=== PATIENT | male | born 1975 | race Caucasian/White ===

== ENCOUNTER 2020-02-07 10:20 | Inpatient (IN) | payer OTHER ==
[~2020-02-07] VITALS: Ht 182.9 cm; Wt 73.9 kg
--- NOTE | 2020-02-07 10:44 | NUR ---
ASSUMED CARE OF PT AT THIS TIME FROM TRIAGE. PT AMBULATORY TO ROOM WITH STEADY GAIT. 44 Y/O M PRESENTS STATING "THROWING UP FOR PAST 13 DAYS, STARTED BY GETTING REALLY NAUSEATED, TRYING TO SIP ON SOUP BROTH AND WATER AND REALLY HARD TIME KEEPING IT DOWN, PAIN IN MY RIGHT STOMACH. I WALK AROUND A LOT FOR MY JOB. I WAS SEEN AT [facility] A WEEK AGO, GAVE ME NAUSEA MEDICINE, TOLD ME TO GET INTO TO PCP TO GET CAT SCAN, I GET INTO A PCP RIGHT NOW." CONT PULSE OX, BP MONITORS APPLIED. VSS. REPORTS PAIN 5/10 IN ABD "CRAMPING AND NAUSEA." "I HAVEN'T THROW UP TODAY, SINCE I'VE BEEN IN BED FOR 24 HOURS, KEPT SOME WATER AND CHEERIOS DOWN THIS MORNING." CALL LIGHT IN REACH. FALL PRECAUTIONS IN PLACE. SIDE RAILS UPX2. A&OX4. AWAITING EVAL BY ERP. CLEAN CATCH UA COLLECTED AND SENT TO LAB. DENIES FEVER, CHILLS, DIARRHEA, DIAZ, COUGH, SOB, CP.
[2020-02-07] MEDS ORDERED: ONDA4TAB7 PO (11:02)
--- NOTE | 2020-02-07 11:10 | NUR ---
DR. SAXENA AT BEDSIDE FOR EVAL
[2020-02-07] MEDS ORDERED: SODIUM CHLORIDE 0.9% 1,000 ML IV ONE (11:12)
[2020-02-07 11:25] LABS: MICROSCOPIC NOT IND
[2020-02-07] MEDS ORDERED: SODIUM CHLORIDE FLUSH 10ML SYR IVF ONE (11:30)
--- NOTE | 2020-02-07 11:32 | NUR ---
IVF INFUSING PER EMAR AND MD ORDER. PT DENIES NEED FOR PAIN/NAUSEA MEDICATION AT THIS TIME. "I'M NOT NAUSEATED CURRENTLY AND THE PAIN IS TOLERABLE." VSS. CALL LIGHT IN REACH. FALL PRECAUTIONS IN PLACE. AWAITING CT
[2020-02-07 12:03] LABS: CULTURE INDICATED? NO
[2020-02-07 12:06] LABS: BASOPHILS # (AUTO) 0.04 x10^3/uL (0-0.1); BASOPHILS % (AUTO) 1 % (0-1); EOSINOPHILS # (AUTO) 0.05 x10^3/uL (0-0.4); EOSINOPHILS % (AUTO) 1 % (1-7); LYMPHOCYTES # (AUTO) 1.63 x10^3/uL (1-3.4); LYMPHOCYTES % (AUTO) 24 % (22-44); MD NO; MEAN CORPUSCULAR HEMOGLOBIN 30.6 pg (27.5-34.5); MEAN CORPUSCULAR HGB CONC 33.8 g/dL (33.2-36.2); MEAN CORPUSCULAR VOLUME 90.4 fL (81-97); MEAN PLATELET VOLUME 9.1 fL (7.4-10.4); MONOCYTES # (AUTO) 0.87 x10^3/uL (0.2-0.8); MONOCYTES % (AUTO) 13 % (2-9); NEUTROPHILS # (AUTO) 4.12 x10^3/uL (1.8-6.8); NEUTROPHILS % (AUTO) 61 % (42-75); PLATELET COUNT 175 x10^3/uL (130-400); RED CELL DISTRIBUTION WIDTH 12.7 % (9.4-14.8)
[2020-02-07 12:17] LABS: ALANINE AMINOTRANSFERASE 19 U/L (12-78); ALBUMIN 3.9 g/dL (3.4-5.0); ANION GAP 7 mmol/L (5-15); CALCIUM 9.6 mg/dL (8.5-10.1); CHLORIDE 108 mmol/L (98-107); CREATININE 1.11 mg/dL (0.7-1.3)
[2020-02-07 12:19] LABS: ALKALINE PHOSPHATASE 54 U/L (45-117); BILIRUBIN,TOTAL 0.9 mg/dL (0.2-1.0); TOTAL PROTEIN 6.7 g/dL (6.4-8.2)
--- NOTE | 2020-02-07 12:39 | NUR ---
PT CONTINUES AWAITING CT, CT CALLED, TO COME TAKE PT. PT REQUESTING "SOMETHING FOR MY PAIN, IT'S GETTING WORSE, LIKE 810 NOW, AND A NAUSEA SEEMS TO BE GETTING WORSE." DISCUSSED WITH DR. SAXENA, AWAITING ORDERS. VSS. CALL LIGHT IN REACH. FALL PRECAUTIONS IN PLACE. DENIES NEED TO USE RESTROOM.
--- NOTE | 2020-02-07 12:49 | NUR ---
BEDSIDE REPORT AND TRANSFER OF CARE TO JASEN CONNORS AT THIS TIME.
[2020-02-07] MEDS ORDERED: MAALOX/HYOSCYAMINE/LIDOCAINE 45 ML BTL PO ONE (13:00)
[2020-02-07] MEDS ORDERED: ONDANSETRON 2MG/ML, 2ML IVPush ONE (13:00)
[2020-02-07] MEDS ORDERED: MORPHINE SULFATE 4 MG/ML, 1ML ONE (13:30)
[2020-02-07] MEDS ORDERED: MAALOX/HYOSCYAMINE/LIDOCAINE 45 ML BTL ONE (13:30)
[2020-02-07] MEDS ORDERED: ONDANSETRON 2MG/ML, 2ML ONE (13:30)
[2020-02-07] MEDS ORDERED: MORPHINE SULFATE 4 MG/ML, 1ML IVPush ONE (13:30)
--- NOTE | 2020-02-07 14:24 | NUR ---
Pt resting on joseph talking to ED MD at bedside. NADN. No needs expressed at this time. Call light within reach.
[2020-02-07] MEDS ORDERED: LACTATED RINGERS 1,000 ML IV SCH (14:30)
--- NOTE | 2020-02-07 15:35 | NUR ---
Pt has NG tube in place at low continous suction per EDMD order. Pt has PIV fluids infusing per EMAR. Pt connected to NIBP cuff and continous pulse ox monitor. Call light within reach. NADN. Pt denies needs at this time. Pt on personal cell phone at this time.
--- NOTE | 2020-02-07 15:49 | NUR ---
Provided SBAR report to WAYLON Odom. All questions answered. Pt ready to transfer from ED to floor.
--- NOTE | 2020-02-07 16:13 | NUR ---
Pt transfered from ED to floor.
[2020-02-07] MEDS ORDERED: METOCLOPRAMIDE 5 MG/ML, 2ML IVPush PRN (16:30)
[2020-02-07] MEDS ORDERED: PROMETHAZINE 25 MG/ML, 1ML IM PRN (16:30)
[2020-02-07] MEDS: AZITHROMYCIN 500 MG in SODIUM CHLORIDE 0.9% 250 ML IV SCH (17:09)
[2020-02-07] MEDS: ONDANSETRON 2MG/ML, 2ML IVPush PRN (17:14)
[2020-02-07] MEDS: morphine SULFATE 10 MG/ML, 1ML IVPush PRN ×2 (17:14→20:55)
[2020-02-07] MEDS: D5%-0.45NACL+KCL 20MEQ 1,000 ML IV SCH (18:08)
[2020-02-07 19:12] VITALS: BP 121/79
[2020-02-07] MEDS: ENOXAPARIN 40 MG/0.4 ML SQ SCH (20:56)
[2020-02-08] MEDS ORDERED: MORPHINE SULFATE 4 MG/ML, 1ML ONE ×2 (02:08→05:14)
[2020-02-08 02:12] VITALS: BP 119/81
[2020-02-08] MEDS: morphine SULFATE 10 MG/ML, 1ML IVPush PRN ×8 (02:15→23:56)
[2020-02-08] MEDS: ONDANSETRON 2MG/ML, 2ML IVPush PRN ×4 (02:15→20:50)
[2020-02-08] MEDS: D5%-0.45NACL+KCL 20MEQ 1,000 ML IV SCH ×3 (02:16→23:56)
[2020-02-08 05:04] LABS: BASOPHILS # (AUTO) 0.03 x10^3/uL (0-0.1); BASOPHILS % (AUTO) 1 % (0-1); EOSINOPHILS # (AUTO) 0.06 x10^3/uL (0-0.4); EOSINOPHILS % (AUTO) 1 % (1-7); LYMPHOCYTES # (AUTO) 1.93 x10^3/uL (1-3.4); LYMPHOCYTES % (AUTO) 27 % (22-44); MD NO; MEAN CORPUSCULAR HGB CONC 32.8 g/dL (33.2-36.2); MEAN CORPUSCULAR VOLUME 91.5 fL (81-97); MEAN PLATELET VOLUME 9.2 fL (7.4-10.4); MONOCYTES # (AUTO) 0.77 x10^3/uL (0.2-0.8); MONOCYTES % (AUTO) 11 % (2-9); NEUTROPHILS # (AUTO) 4.29 x10^3/uL (1.8-6.8); NEUTROPHILS % (AUTO) 61 % (42-75); PLATELET COUNT 172 x10^3/uL (130-400); RED BLOOD COUNT 5.74 x10^6/uL (4.38-5.82); RED CELL DISTRIBUTION WIDTH 13.3 % (9.4-14.8)
[2020-02-08 05:12] LABS: ALANINE AMINOTRANSFERASE 19 U/L (12-78); ALBUMIN 3.9 g/dL (3.4-5.0); ANION GAP 5 mmol/L (5-15); CALCIUM 8.8 mg/dL (8.5-10.1); CHLORIDE 108 mmol/L (98-107); CREATININE 1.18 mg/dL (0.7-1.3)
[2020-02-08 05:14] LABS: ALKALINE PHOSPHATASE 57 U/L (45-117); BILIRUBIN,TOTAL 1.2 mg/dL (0.2-1.0); TOTAL PROTEIN 6.5 g/dL (6.4-8.2)
[2020-02-08 07:59] VITALS: BP 129/80
[2020-02-08 15:00] VITALS: BP 109/71
[2020-02-08] MEDS: AZITHROMYCIN 500 MG in SODIUM CHLORIDE 0.9% 250 ML IV SCH (16:23)
[2020-02-08 19:06] VITALS: BP 103/69
[2020-02-08] MEDS: ENOXAPARIN 40 MG/0.4 ML SQ SCH (21:09)
[2020-02-09 01:07] VITALS: BP 112/77
[2020-02-09] MEDS: ONDANSETRON 2MG/ML, 2ML IVPush PRN ×3 (03:58→18:17)
[2020-02-09] MEDS: morphine SULFATE 10 MG/ML, 1ML IVPush PRN ×6 (03:58→21:17)
[2020-02-09 05:23] LABS: BASOPHILS # (AUTO) 0.04 x10^3/uL (0-0.1); BASOPHILS % (AUTO) 1 % (0-1); EOSINOPHILS # (AUTO) 0.08 x10^3/uL (0-0.4); EOSINOPHILS % (AUTO) 1 % (1-7); LYMPHOCYTES # (AUTO) 1.67 x10^3/uL (1-3.4); LYMPHOCYTES % (AUTO) 24 % (22-44); MD NO; MEAN CORPUSCULAR HGB CONC 34.2 g/dL (33.2-36.2); MEAN CORPUSCULAR VOLUME 90.7 fL (81-97); MEAN PLATELET VOLUME 8.6 fL (7.4-10.4); MONOCYTES # (AUTO) 0.78 x10^3/uL (0.2-0.8); MONOCYTES % (AUTO) 11 % (2-9); NEUTROPHILS # (AUTO) 4.37 x10^3/uL (1.8-6.8); NEUTROPHILS % (AUTO) 63 % (42-75); PLATELET COUNT 149 x10^3/uL (130-400); RED BLOOD COUNT 5.24 x10^6/uL (4.38-5.82); RED CELL DISTRIBUTION WIDTH 12.9 % (9.4-14.8)
[2020-02-09 05:29] LABS: ALBUMIN 3.7 g/dL (3.4-5.0); ANION GAP 5 mmol/L (5-15); CALCIUM 8.8 mg/dL (8.5-10.1); CHLORIDE 103 mmol/L (98-107)
[2020-02-09 05:32] LABS: CREATININE 1.02 mg/dL (0.7-1.3)
[2020-02-09 07:20] VITALS: BP 125/67
[2020-02-09] MEDS: D5%-0.45NACL+KCL 20MEQ 1,000 ML IV SCH ×2 (08:00→21:18)
[2020-02-09] MEDS ORDERED: CARVEDILOL 25 MG TABLET PO SCH (10:30)
[2020-02-09 13:11] VITALS: BP 124/80
[2020-02-09] MEDS: AZITHROMYCIN 500 MG in SODIUM CHLORIDE 0.9% 250 ML IV SCH (16:53)
[2020-02-09 19:25] VITALS: BP 108/71
[2020-02-09] MEDS: ENOXAPARIN 40 MG/0.4 ML SQ SCH (21:18)
[2020-02-10] MEDS: ONDANSETRON 2MG/ML, 2ML IVPush PRN ×2 (00:19→16:21)
[2020-02-10] MEDS: morphine SULFATE 10 MG/ML, 1ML IVPush PRN ×7 (00:20→23:23)
[2020-02-10 01:33] VITALS: BP_SYST 104; BP_SYST 124; BP_DIAS 68; BP_DIAS 72
[2020-02-10 05:38] LABS: BASOPHILS # (AUTO) 0.03 x10^3/uL (0-0.1); BASOPHILS % (AUTO) 1 % (0-1); EOSINOPHILS # (AUTO) 0.08 x10^3/uL (0-0.4); EOSINOPHILS % (AUTO) 1 % (1-7); LYMPHOCYTES # (AUTO) 1.36 x10^3/uL (1-3.4); LYMPHOCYTES % (AUTO) 22 % (22-44); MD NO; MEAN CORPUSCULAR HEMOGLOBIN 30.8 pg (27.5-34.5); MEAN CORPUSCULAR HGB CONC 33.8 g/dL (33.2-36.2); MEAN CORPUSCULAR VOLUME 91.1 fL (81-97); MEAN PLATELET VOLUME 8.7 fL (7.4-10.4); MONOCYTES # (AUTO) 0.69 x10^3/uL (0.2-0.8); MONOCYTES % (AUTO) 11 % (2-9); NEUTROPHILS # (AUTO) 4.11 x10^3/uL (1.8-6.8); NEUTROPHILS % (AUTO) 66 % (42-75); PLATELET COUNT 164 x10^3/uL (130-400); RED BLOOD COUNT 5.45 x10^6/uL (4.38-5.82); RED CELL DISTRIBUTION WIDTH 12.7 % (9.4-14.8)
[2020-02-10 05:47] LABS: ALANINE AMINOTRANSFERASE 13 U/L (12-78); ALBUMIN 3.7 g/dL (3.4-5.0); ANION GAP 4 mmol/L (5-15); CHLORIDE 104 mmol/L (98-107)
[2020-02-10 05:50] LABS: ALKALINE PHOSPHATASE 59 U/L (45-117); BILIRUBIN,TOTAL 1.3 mg/dL (0.2-1.0); CREATININE 1.05 mg/dL (0.7-1.3); TOTAL PROTEIN 6.4 g/dL (6.4-8.2)
[2020-02-10] MEDS: D5%-0.45NACL+KCL 20MEQ 1,000 ML IV SCH ×3 (05:50→23:23)
[2020-02-10 07:06] VITALS: BP 108/73
[2020-02-10 13:55] VITALS: BP 107/74
[2020-02-10 20:14] VITALS: BP 95/60
[2020-02-10] MEDS: ENOXAPARIN 40 MG/0.4 ML SQ SCH (21:14)
[2020-02-11 02:09] VITALS: BP 93/57
[2020-02-11] MEDS: morphine SULFATE 10 MG/ML, 1ML IVPush PRN ×5 (02:43→22:49)
[2020-02-11 05:12] LABS: BASOPHILS # (AUTO) 0.03 x10^3/uL (0-0.1); BASOPHILS % (AUTO) 0 % (0-1); EOSINOPHILS # (AUTO) 0.22 x10^3/uL (0-0.4); EOSINOPHILS % (AUTO) 3 % (1-7); LYMPHOCYTES # (AUTO) 1.65 x10^3/uL (1-3.4); LYMPHOCYTES % (AUTO) 23 % (22-44); MD NO; MEAN CORPUSCULAR HEMOGLOBIN 30.2 pg (27.5-34.5); MEAN CORPUSCULAR VOLUME 91.5 fL (81-97); MEAN PLATELET VOLUME 8.8 fL (7.4-10.4); MONOCYTES # (AUTO) 0.79 x10^3/uL (0.2-0.8); MONOCYTES % (AUTO) 11 % (2-9); NEUTROPHILS # (AUTO) 4.58 x10^3/uL (1.8-6.8); NEUTROPHILS % (AUTO) 63 % (42-75); PLATELET COUNT 171 x10^3/uL (130-400); RED BLOOD COUNT 5.83 x10^6/uL (4.38-5.82); RED CELL DISTRIBUTION WIDTH 12.8 % (9.4-14.8)
[2020-02-11 05:22] LABS: ALBUMIN 3.8 g/dL (3.4-5.0); ANION GAP 6 mmol/L (5-15); CALCIUM 9.1 mg/dL (8.5-10.1); CHLORIDE 104 mmol/L (98-107)
[2020-02-11 05:24] LABS: CREATININE 1.21 mg/dL (0.7-1.3)
[2020-02-11 07:25] VITALS: BP 117/70
[2020-02-11] MEDS: D5%-0.45NACL+KCL 20MEQ 1,000 ML IV SCH ×3 (08:04→23:12)
[2020-02-11 13:25] VITALS: BP 108/69
[2020-02-11 21:22] VITALS: BP 120/79
[2020-02-11] MEDS: ENOXAPARIN 40 MG/0.4 ML SQ SCH (21:27)
[2020-02-12 03:00] VITALS: BP 132/91
[2020-02-12] MEDS: morphine SULFATE 10 MG/ML, 1ML IVPush PRN ×5 (03:00→20:42)
[2020-02-12 05:39] LABS: BASOPHILS # (AUTO) 0.02 x10^3/uL (0-0.1); BASOPHILS % (AUTO) 0 % (0-1); EOSINOPHILS # (AUTO) 0.19 x10^3/uL (0-0.4); EOSINOPHILS % (AUTO) 3 % (1-7); LYMPHOCYTES # (AUTO) 1.35 x10^3/uL (1-3.4); LYMPHOCYTES % (AUTO) 21 % (22-44); MD NO; MEAN CORPUSCULAR HEMOGLOBIN 30.7 pg (27.5-34.5); MEAN CORPUSCULAR VOLUME 90.1 fL (81-97); MEAN PLATELET VOLUME 9.1 fL (7.4-10.4); MONOCYTES # (AUTO) 0.68 x10^3/uL (0.2-0.8); MONOCYTES % (AUTO) 10 % (2-9); NEUTROPHILS # (AUTO) 4.38 x10^3/uL (1.8-6.8); NEUTROPHILS % (AUTO) 66 % (42-75); PLATELET COUNT 159 x10^3/uL (130-400); RED BLOOD COUNT 5.56 x10^6/uL (4.38-5.82); RED CELL DISTRIBUTION WIDTH 12.6 % (9.4-14.8)
[2020-02-12 05:56] LABS: ALBUMIN 3.5 g/dL (3.4-5.0); ANION GAP 7 mmol/L (5-15); CHLORIDE 106 mmol/L (98-107)
[2020-02-12 06:06] LABS: CALCIUM 9.1 mg/dL (8.5-10.1); CREATININE 0.97 mg/dL (0.7-1.3)
[2020-02-12] MEDS: D5%-0.45NACL+KCL 20MEQ 1,000 ML IV SCH ×2 (06:08→20:21)
[2020-02-12 06:22] VITALS: BP 112/76
[2020-02-12 12:46] VITALS: BP 109/68
[2020-02-12 20:17] VITALS: BP 121/83
[2020-02-12] MEDS: ENOXAPARIN 40 MG/0.4 ML SQ SCH (20:21)
[2020-02-13] MEDS: TRAZODONE 50MG TABLET PO PRN ×2 (01:13→20:53)
[2020-02-13] MEDS: morphine SULFATE 10 MG/ML, 1ML IVPush PRN ×2 (01:14→06:36)
[2020-02-13 03:14] VITALS: BP 102/69
[2020-02-13] MEDS: D5%-0.45NACL+KCL 20MEQ 1,000 ML IV SCH ×3 (05:09→22:53)
[2020-02-13] MEDS: BISACODYL 10 MG SUPP PR PRN (06:36)
[2020-02-13 07:24] VITALS: BP 109/73
[2020-02-13 09:43] LABS: BASOPHILS # (AUTO) 0.03 x10^3/uL (0-0.1); BASOPHILS % (AUTO) 0 % (0-1); EOSINOPHILS % (AUTO) 3 % (1-7); LYMPHOCYTES # (AUTO) 1.19 x10^3/uL (1-3.4); LYMPHOCYTES % (AUTO) 16 % (22-44); MD NO; MEAN CORPUSCULAR HEMOGLOBIN 30.4 pg (27.5-34.5); MEAN CORPUSCULAR HGB CONC 33.1 g/dL (33.2-36.2); MEAN CORPUSCULAR VOLUME 91.8 fL (81-97); MONOCYTES # (AUTO) 0.77 x10^3/uL (0.2-0.8); MONOCYTES % (AUTO) 11 % (2-9); NEUTROPHILS # (AUTO) 5.07 x10^3/uL (1.8-6.8); NEUTROPHILS % (AUTO) 70 % (42-75); PLATELET COUNT 162 x10^3/uL (130-400); RED BLOOD COUNT 5.29 x10^6/uL (4.38-5.82); RED CELL DISTRIBUTION WIDTH 12.6 % (9.4-14.8)
[2020-02-13 09:54] LABS: ALBUMIN 3.4 g/dL (3.4-5.0); ANION GAP 9 mmol/L (5-15); CALCIUM 8.8 mg/dL (8.5-10.1); CHLORIDE 108 mmol/L (98-107)
[2020-02-13 09:58] LABS: ALANINE AMINOTRANSFERASE 29 U/L (12-78); ALKALINE PHOSPHATASE 64 U/L (45-117); BILIRUBIN,TOTAL 1.6 mg/dL (0.2-1.0); CREATININE 0.98 mg/dL (0.7-1.3); TOTAL PROTEIN 6.2 g/dL (6.4-8.2)
[2020-02-13] MEDS ORDERED: MAGNESIUM SULFATE PMX 2GM/50ML 50 ML IV ONE (11:30)
[2020-02-13 13:51] VITALS: BP 136/84
[2020-02-13] MEDS: MORPHINE SULFATE 4 MG/ML, 1ML IVPush PRN ×2 (15:24→20:52)
[2020-02-13] MEDS: ENOXAPARIN 40 MG/0.4 ML SQ SCH (20:53)
[2020-02-13 20:54] VITALS: BP 130/88
[2020-02-14] MEDS: MORPHINE SULFATE 4 MG/ML, 1ML IVPush PRN ×2 (02:08→06:37)
[2020-02-14 02:09] VITALS: BP 123/82
[2020-02-14] MEDS: BISACODYL 10 MG SUPP PR PRN (04:58)
[2020-02-14 05:08] LABS: ALBUMIN 3.3 g/dL (3.4-5.0); ANION GAP 7 mmol/L (5-15); BASOPHILS # (AUTO) 0.03 x10^3/uL (0-0.1); BASOPHILS % (AUTO) 1 % (0-1); CALCIUM 8.7 mg/dL (8.5-10.1); CHLORIDE 110 mmol/L (98-107); EOSINOPHILS # (AUTO) 0.24 x10^3/uL (0-0.4); EOSINOPHILS % (AUTO) 4 % (1-7); LYMPHOCYTES # (AUTO) 1.52 x10^3/uL (1-3.4); LYMPHOCYTES % (AUTO) 23 % (22-44); MD NO; MEAN CORPUSCULAR HEMOGLOBIN 30.6 pg (27.5-34.5); MEAN CORPUSCULAR HGB CONC 33.8 g/dL (33.2-36.2); MEAN CORPUSCULAR VOLUME 90.3 fL (81-97); MEAN PLATELET VOLUME 9.5 fL (7.4-10.4); MONOCYTES # (AUTO) 0.65 x10^3/uL (0.2-0.8); MONOCYTES % (AUTO) 10 % (2-9); NEUTROPHILS # (AUTO) 4.09 x10^3/uL (1.8-6.8); NEUTROPHILS % (AUTO) 63 % (42-75); PLATELET COUNT 173 x10^3/uL (130-400); RED BLOOD COUNT 5.17 x10^6/uL (4.38-5.82); RED CELL DISTRIBUTION WIDTH 12.7 % (9.4-14.8)
[2020-02-14 05:12] LABS: ALANINE AMINOTRANSFERASE 26 U/L (12-78); ALKALINE PHOSPHATASE 64 U/L (45-117); BILIRUBIN,TOTAL 1.1 mg/dL (0.2-1.0); CREATININE 0.97 mg/dL (0.7-1.3); TOTAL PROTEIN 6.1 g/dL (6.4-8.2)
[2020-02-14] MEDS: D5%-0.45NACL+KCL 20MEQ 1,000 ML IV SCH ×2 (06:37→15:38)
[2020-02-14 07:04] VITALS: BP 109/69
[2020-02-14 14:00] VITALS: BP 108/70
[2020-02-14 17:16] VITALS: BP 124/76
== END 2020-02-14 20:19 | disposition home or self-care (01) | DRG 388 ==
LOC: ED 11:20 → EDIP 14:38 → 4NE 16:10
PROVIDERS: ADMIT Internal Medicine; ATTEND Family Medicine
PROC: 0D9670Z Drainage of Stomach with Drainage Device, Via Natural or Artificial Opening (ICD-10-PCS; principal; 2020-02-07)
DX: K56.699 Other intestinal obstruction unspecified as to partial versus complete obstruction (principal); J18.9 Pneumonia, unspecified organism; Q43.3 Congenital malformations of intestinal fixation; E83.42 Hypomagnesemia; Z92.21 Personal history of antineoplastic chemotherapy
CPT/HCPCS: 36415; 74018; 74177; 74240; 80053; 80069; 81003; 83690; 83735; 84100; 85025; 96374; G0378; J0456; J1650; J2405; J2270; J3475; J3480; J7030; J7050